=== PATIENT | male | born 1995 | race Asian ===

== ENCOUNTER 2022-11-10 22:08 | Emergency (ER) | payer MEDICAID, OTHER ==
[~2022-11-10] VITALS: Ht 185.4 cm; Wt 70.3 kg
[2022-11-10 22:36] VITALS: BP 123/85
--- NOTE | 2022-11-10 22:40 | NUR ---
TO LOBBY A/W BED AMBULATORY
[2022-11-10] MEDS ORDERED: MORPHINE SULFATE 4 MG/ML SYR IM ONE (23:30)
[2022-11-10] MEDS ORDERED: KETOROLAC 15 MG/ML VIAL IM ONE (23:30)
--- NOTE | 2022-11-10 23:50 | NUR ---
27YR OLD MALE BIB SELF C/O LEFT SIDED FACIAL PAIN X5DAYS. PT STATES PAIN STARTED FROM DENTAL ISSUE 5 DAYS AGO RADIATES TO L EAR TO LEFT SIDE OF HEAD. 10/10 SHARP / ACHE PAIN. PT IS A&OX4 . DENIES FEVER SOB OR CP OR COUGH. HOB ELEVATED BED AT LOWEST POSITION NKDA NO MED HX
[2022-11-11] MEDS ORDERED: ACET-9535 PO (00:32)
[2022-11-11] MEDS ORDERED: IBUP-2213 PO (00:32)
--- NOTE | 2022-11-11 01:13 | NUR ---
Patient discharged with v/s stable. Written and verbal after care instructions given and explained. Patient verbalized understanding. Ambulatory with to car. All questions addressed prior to discharge. Advised to follow up with PMD.
== END 2022-11-11 01:13 | disposition home or self-care (01) ==
LOC: MED 22:08
DX: K08.89 Other specified disorders of teeth and supporting structures (principal); Z79.899 Other long term (current) drug therapy
CPT/HCPCS: 96372; 99284; J1885; J2270